=== PATIENT | female | born 1990 | race Caucasian/White ===

== ENCOUNTER 2018-07-27 17:59 | Emergency (ER) | payer MEDICAID ==
[2018-07-27 18:01] VITALS: BMI 19.9
--- NOTE | 2018-07-27 20:06 | ED PDOC ---
Arrival/HPI <Prosper Brown - Last Filed: 07/27/18 22:43> - General Historian: Patient - History of Present Illness Narrative History of Present Illness (Text): 07/27/18 20:10 A 27 year old female, who is currently 9 weeks , presents to the emergency department complaining of sore throat, body aches, fatigue, high fever, and 1 episode of vomiting today. She mentions also developing a fever and slight non-productive cough today as well as sore throat. 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 Patient denies any nasal congestion, abdominal pain, diarrhea, dysuria, urinary frequency, or any other complaints at this time. Denies any sick contacts. Symptom Onset: Sudden Symptom Course: Unchanged <Hue Dixon - Last Filed: 07/28/18 00:57> - General Chief Complaint: ENT Problem Time Seen by Provider: 07/27/18 18:20 Past Medical History - Provider Review Nursing Documentation Reviewed: Yes - Infectious Disease Hx of Infectious Diseases: None - Tetanus Immunization Tetanus Immunization: Unknown - Past Medical History Past Medical History: No Previous - Psychiatric Hx Psychophysiologic Disorder: No Hx Substance Use: No - Past Surgical History Past Surgical History: No Previous - Surgical History Hx Eye Surgery: Yes - Anesthesia Hx Anesthesia: Yes Hx Anesthesia Reactions: No Hx Malignant Hyperthermia: No - Suicidal Assessment Feels Threatened In Home Enviroment: No <Hue iDxon - Last Filed: 07/28/18 00:57> Family/Social History - Physician Review Nursing Documentation Reviewed: Yes Family/Social History: No Known Family HX Smoking Status: Never Smoked Hx Alcohol Use: No Hx Substance Use: No Hx Substance Use Treatment: No <Hue Dixon - Last Filed: 07/28/18 00:57> Allergies/Home Meds <Prosper Brown - Last Filed: 07/27/18 22:43> <Hue Dixon - Last Filed: 07/28/18 00:57> Allergies/Adverse Reactions: Allergies No Known Allergies Allergy (Verified 07/27/18 18:22) Review of Systems - Physician Review All systems were reviewed & negative as marked: Yes - Review of Systems Constitutional: Fatigue, Fevers ENT: Sore Throat. absent: Sinus Congestion Respiratory: Cough. absent: SOB Cardiovascular: absent: Chest Pain, Palpitations Gastrointestinal: Vomiting (1 episode). absent: Abdominal Pain, Diarrhea Genitourinary Female: absent: Dysuria, Frequency Musculoskeletal: Myalgias. absent: Arthralgias, Back Pain, Neck Pain Skin: absent: Rash, Pruritis Neurological: absent: Headache, Dizziness Psychiatric: absent: Anxiety, Depression <Hue Dixon - Last Filed: 07/28/18 00:57> Physical Exam Vital Signs Temp Pulse Resp BP Pulse Ox 07/27/18 22:18 98.8 F 98 H 18 105/64 99 07/27/18 21:53 97.9 F 95 H 18 106/65 96 07/27/18 18:18 101.2 F H 112 H 20 124/83 99 <Prosper Brown - Last Filed: 07/27/18 22:43> Vital Signs Reviewed: Yes Vital Signs Temp Pulse Resp BP Pulse Ox 07/27/18 18:18 101.2 F H 112 H 20 124/83 99 Temperature: Febrile Blood Pressure: Normal Pulse: Tachycardic Respiratory Rate: Normal Appearance: Positive for: Well-Appearing, Non-Toxic, Comfortable Pain Distress: None Mental Status: Positive for: Alert and Oriented X 3 - Systems Exam Head: Present: Atraumatic, Normocephalic Ears: Present: Normal Mouth: Present: Moist Mucous Membranes, Normal Lips, Normal Tounge. No: Drooling, Trismus Pharnyx: Present: Normal. No: ERYTHEMA, EXUDATE, TONSILS ENLARGED Nose (External): Present: Atraumatic Nose (Internal): Present: Normal Inspection Neck: Present: Normal Range of Motion, Trachea Midline Respiratory/Chest: Present: Clear to Auscultation, Good Air Exchange. No: Respiratory Distress, Accessory Muscle Use Cardiovascular: Present: Regular Rate and Rhythm, Normal S1, S2. No: Murmurs Abdomen: No: Tenderness, Distention, Peritoneal Signs Upper Extremity: Present: Normal ROM Lower Extremity: Present: Normal ROM Neurological: Present: GCS=15, Speech Normal Skin: Present: Warm, Dry, Normal Color. No: Rashes Psychiatric: Present: Alert, Oriented x 3 <Hue Dixon - Last Filed: 07/28/18 00:57> Medical Decision Making - Lab Interpretations Lab Results: Urine Color Yellow (YELLOW) 07/27/18 20:40 Urine Appearance Clear (CLEAR) 07/27/18 20:40 Urine pH 6.0 (4.7-8.0) 07/27/18 20:40 Ur Specific [place] >= 1.030 (1.005-1.035) 07/27/18 20:40 Urine Protein Trace mg/dL (<30 mg/dL) H 07/27/18 20:40 Urine Glucose (UA) Negative mg/dL (NEGATIVE) 07/27/18 20:40 Urine Ketones 15 mg/dL (NEGATIVE) H 07/27/18 20:40 Urine Blood Negative (NEGATIVE) 07/27/18 20:40 Urine Nitrate Negative (NEGATIVE) 07/27/18 20:40 Urine Bilirubin Negative (NEGATIVE) 07/27/18 20:40 Urine Urobilinogen 0.2 E.U./dL (<1 E.U./dL) 07/27/18 20:40 Ur Leukocyte Esterase Small Keeley/uL (NEGATIVE) H 07/27/18 20:40 Urine RBC TEST NOT PERFORMED 07/27/18 20:40 Urine WBC 5 - 10 /hpf (0-6) H 07/27/18 20:40 Ur Epithelial Cells 10 - 12 /hpf (0-5) H 07/27/18 20:40 Urine Bacteria Small /hpf (NONE) 07/27/18 20:40 - Medication Orders Current Medication Orders: Discontinued Medications Acetaminophen (Tylenol 325mg Tab) 975 mg PO STAT STA Stop: 07/27/18 19:05 Last Admin: 07/27/18 20:36 Dose: 975 mg <Prosper Brown - Last Filed: 07/27/18 22:43> ED Course and Treatment: 07/27/18 20:14 Impression: 27 year old female with flu-like symptoms, will order flu and strep test, check Urinalysis, and give Tylenol for fever. Plan: -- Tylenol -- Throat Culture -- Reassess and disposition Progress Notes: rapid flu negative Rapid strep negative Patient reassessment: Patient feeling better after medications. Vital signs are stable. Patient given Tamiflu for flulike symptoms and given amoxicillin for UTI. All results discussed in depth with the patient. I discussed Tamiflu in depth with the patient advised to that it is category C that the FDA does approve it for the treatment of flu and women. Patient verbalizes understanding of discharge instructions and need for immediate followup. Impression: Flulike symptoms, UTI Tylenol every 4 hours as needed for pain Tamiflu twice daily 5 days Amoxicillin twice daily 7 days Follow-up the primary care physician within the next 2 days Return immediately if symptoms worsen persist or if new concerning symptoms develop 07/27/18 22:48 Reassessment Condition: Re-examined, Improved - Medication Orders Current Medication Orders: Discontinued Medications Acetaminophen (Tylenol 325mg Tab) 975 mg PO STAT STA Stop: 07/27/18 19:05 <Hue Dixon - Last Filed: 07/28/18 00:57> - PA / ANIMAL HANDLER / Resident Statement MD/DO has reviewed & agrees with the documentation as recorded. <Prosper Brown - Last Filed: 07/27/18 22:43> - Scribe Statement The provider has reviewed the documentation as recorded by the Gwendolyn Shah Provider Scribe Attestation: All medical record entries made by the Scribe were at my direction and personally dictated by me. I have reviewed the chart and agree that the record accurately reflects my personal performance of the history, physical exam, medical decision making, and the department course for this patient. I have also personally directed, reviewed, and agree with the discharge instructions and disposition. <Hue Dixon - Last Filed: 07/28/18 00:57> Disposition/Present on Arrival <Prosper Brown - Last Filed: 07/27/18 22:43> - Present on Arrival Any Indicators Present on Arrival: No History of DVT/PE: No History of Uncontrolled Diabetes: No Urinary Catheter: No History of Decub. Ulcer: No History Surgical Site Infection Following: None - Disposition Have Diagnosis and Disposition been Completed?: Yes Disposition Time: 21:30 Patient Plan: Discharge <Hue Dixon - Last Filed: 07/28/18 00:57> - Disposition Diagnosis: Flu-like symptoms, Urinary tract infection Disposition: HOME/ ROUTINE Condition: GOOD Discharge Instructions (ExitCare): Urinary Tract Infections in Adults, Flu, Adult (DC) Additional Instructions: Tylenol every 4 hours as needed for pain Tamiflu twice daily 5 days Amoxicillin twice daily 7 days Follow-up the primary care physician within the next 2 days Return immediately if symptoms worsen persist or if new concerning symptoms develop Prescriptions: Amoxicillin 875 mg PO BID #14 tab Oseltamivir Cap [Tamiflu] 75 mg PO BID #10 cap Referrals: Jo Adamson MD [Medical Doctor] - Follow up with primary [facility] [Outside] - Follow up with primary Forms: [employer] ([place]e), WORK NOTE
[2018-07-27 20:10] LABS: INFLUENZA A B NEGATIVE FOR FLU A/B (NEGATIVE)
[2018-07-27 21:05] LABS: URINE BILIRUBIN NEGATIVE (NEGATIVE); URINE BLOOD NEGATIVE (NEGATIVE); URINE GLUCOSE (UA) NEGATIVE (NEGATIVE); URINE LEUKOCYTE ESTERASE SMALL Leu/uL (NEGATIVE); URINE PROTEIN TRACE mg/dL (<30 mg/dL); URINE UROBILINOGEN 0.2 E.U./dL (<1 E.U./dL)
[2018-07-27 21:08] LABS: URINE APPEARANCE CLEAR (CLEAR); URINE COLOR YELLOW (YELLOW)
[2018-07-27 21:10] LABS: URINE BACTERIA SMALL /hpf
[2018-07-27 21:54] VITALS: RESP 18
[2018-07-27 22:19] VITALS: O2SAT 99
[2018-07-27 23:47] VITALS: BP 115/74; PULSE 79; TEMP 98.3
== END 2018-07-27 23:10 | disposition home or self-care (01) ==
LOC: ED 17:59
DX: O23.41 Unspecified infection of urinary tract in pregnancy, first trimester (principal); Z3A.09 9 weeks gestation of pregnancy; O26.891 Other specified pregnancy related conditions, first trimester; J11.1 Influenza due to unidentified influenza virus with other respiratory manifestations